=== PATIENT | female | born 1965 | race Caucasian/White ===

== ENCOUNTER 2018-12-12 17:06 | Emergency (ER) | payer BC ==
[2018-12-12 17:52] VITALS: BP 153/83
[2018-12-12] MEDS ORDERED: Acyclovir* 200 MG CAP PO ONE (18:07)
--- NOTE | 2018-12-12 18:13 | UC ---
Skin Complaint HPI - HPI Summary HPI Summary: 53 yo female developed pain and itch in region of right antecubital fossa days ago Yesterday developed rash started on augmentin now with vesicles - History of Current Complaint Chief Complaint: UCRash Time Seen by Provider: 12/12/18 17:53 Stated Complaint: POSSIBLE BUG BITE Hx Obtained From: Patient Hx Last Menstrual Period: 3 yrs Onset/Duration: Gradual Onset, Lasting Days Timing: Constant Onset Severity: Mild Current Severity: Moderate Pain Intensity: 7 Pain Scale Used: 0-10 Numeric Location: Discrete Character: Pain, Redness, Raised Aggravating Factor(s): Nothing Alleviating Factor(s): Nothing Associated Signs & Symptoms: Positive: Negative - Allergy/Home Medications Allergies/Adverse Reactions: Allergies Allergy/AdvReac Type Severity Reaction Status Date / Time latex Allergy Blisters Verified 12/12/18 17:34 metformin Allergy Unknown Verified 12/12/18 17:24 Reaction Details nitrofurantoin Allergy Unknown Verified 12/12/18 17:24 Reaction Details Home Medications: Home Medications Amoxicillin/Clavulanate TAB* [Augmentin TAB 875*] 875 mg PO BID 12/12/18 [ History Confirmed 12/12/18] Empagliflozin [Jardiance] 0 mg PO QAM 12/12/18 [History Confirmed 12/12/18] Ibuprofen TAB* [Motrin TAB* 600 MG] 600 mg PO TID PRN 12/12/18 [History Confirmed 12/12/18] diphenhydrAMINE HCl [Benadryl Allergy] 50 mg PO ONCE PRN 12/12/18 [History Confirmed 12/12/18] PMH/Surg Hx/FS Hx/Imm Hx Previously Healthy: Yes Endocrine History: Diabetes, Dyslipidemia Cardiovascular History: Hypertension - Surgical History Surgical History: Yes Surgery Procedure, Year, and Place: 2 C-sections - Family History Known Family History: Positive: Hypertension, Diabetes, Non-Contributory - Social History Alcohol Use: Occasionally Substance Use Type: None Smoking Status (MU): Former Smoker - Immunization History Most Recent Tetanus Shot: unknown Review of Systems All Other Systems Reviewed And Are Negative: Yes Constitutional: Positive: Negative Skin: Positive: Rash Eyes: Positive: Negative ENT: Positive: Negative Respiratory: Positive: Negative Cardiovascular: Positive: Negative Gastrointestinal: Positive: Negative Genitourinary: Positive: Negative Motor: Positive: Negative Neurovascular: Positive: Negative Musculoskeletal: Positive: Negative Neurological: Positive: Negative Psychological: Positive: Negative Physical Exam Triage Information Reviewed: Yes Completion Of Physical Exam Limited Due To: Altered Mental Status, Dementia, Extremis Appearance: Well-Appearing, No Pain Distress, Well-Nourished Vital Signs: Initial Vital Signs Temp 98.5 F 12/12/18 17:41 Pulse 75 12/12/18 17:41 Resp 16 12/12/18 17:41 BP 153/83 12/12/18 17:41 Pulse Ox 100 12/12/18 17:41 Vital Signs Reviewed: Yes Eyes: Positive: Conjunctiva Clear ENT: Positive: Hearing grossly normal. Negative: Nasal congestion, Nasal drainage, Trismus, Muffled voice, Hoarse voice Dental Exam: Normal Neck: Positive: Supple Respiratory: Positive: Lungs clear, Normal breath sounds, No respiratory distress, No accessory muscle use Cardiovascular: Positive: RRR. Negative: No Murmur - III/ CARLENE (has ) Musculoskeletal: Positive: ROM Intact, No Edema Neurological: Positive: Alert Psychological Exam: Normal Skin Exam: Other - approx 4 x 4 cm of erthyema right anticubital fossa with cluster of 6 vesciles in center Images Front/Back of Body, Lg ([place]): 1 - vesicular rash Course/Dx - Course Course Of Treatment: advised her to stop augmentin however she states she wishes to continue it - Diagnoses Provider Diagnosis: Shingles Discharge ED - Sign-Out/Discharge Documenting (check all that apply): Patient Departure All imaging exams completed and their final reports reviewed: No Studies - Discharge Plan Condition: Stable Disposition: HOME Prescriptions: Famciclovir(NF) [Famvir(NF)] 500 mg PO TID #21 tab Patient Education Materials: Shingles (ED) Referrals: Reynaldo Mathis MD [Primary Care Provider] - 4 Days Additional Instructions: This looks viral and I don't think the augmentin is necessary - Billing Disposition and Condition Condition: STABLE Disposition: Home
== END 2018-12-12 18:30 | disposition home or self-care (01) ==
LOC: UCCORT 17:06
DX: B02.9 Zoster without complications (principal); E11.9 Type 2 diabetes mellitus without complications; E78.5 Hyperlipidemia, unspecified; I10 Essential (primary) hypertension; Z87.891 Personal history of nicotine dependence
CPT/HCPCS: 99212; A9270-GY; G0463